=== PATIENT | female | born 1970 | race Caucasian/White ===

== ENCOUNTER → 2022-06-07 10:57 | Outpatient (BNVA) | payer MEDICAID, SELFPAY | PROVIDERS: Family Provider Nurse Practitioner Family; PCP Family Medicine; Visit Provider Family Medicine | DX: K58.9 Irritable bowel syndrome, unspecified (principal); K76.0 Fatty (change of) liver, not elsewhere classified; L40.9 Psoriasis, unspecified; F17.200 Nicotine dependence, unspecified, uncomplicated; K21.9 Gastro-esophageal reflux disease without esophagitis; R01.1 Cardiac murmur, unspecified; K44.9 Diaphragmatic hernia without obstruction or gangrene; Z71.6 Tobacco abuse counseling | CPT/HCPCS: 80053; 80061; 82306; 83721; 85025 ==

== ENCOUNTER → 2022-06-21 11:22 | Outpatient (BNVA) | payer MEDICAID, SELFPAY | PROVIDERS: Family Provider Nurse Practitioner Family; PCP Family Medicine; Visit Provider Family Medicine | DX: R73.9 Hyperglycemia, unspecified (principal); K21.9 Gastro-esophageal reflux disease without esophagitis; K58.9 Irritable bowel syndrome, unspecified; F17.200 Nicotine dependence, unspecified, uncomplicated; E78.00 Pure hypercholesterolemia, unspecified; E78.1 Pure hyperglyceridemia; E55.9 Vitamin D deficiency, unspecified | CPT/HCPCS: 80053; 83036 ==

== ENCOUNTER 2022-08-21 13:37 | Outpatient (CLI) | payer MEDICAID, SELFPAY ==
--- NOTE | 2022-08-21 14:15 | USCV_ITS ---
Cady Bach Age: 51 Gender: F : 1970 Exam Date: 08/21/2022 14:11 Ordering Phys: Jose Harvey MD Technologist: Toño Carter [place]am [place] [facility] [place] Indication: systolic heart murmur BP: 120 / 76 HR: 81 Rhythm: Sinus Technical Quality: Adequate MEASUREMENTS (Male / Female) Normal Values 2D ECHO LV Diastolic Diameter PLAX 4.9 cm 4.2 - 5.9 / 3.9 - 5.3 cm LV Systolic Diameter PLAX 3.1 cm IVS Diastolic Thickness 0.8 cm 0.6 - 1.0 / 0.6 - 0.9 cm IVS Systolic Thickness 1.2 cm LVPW Diastolic Thickness 1.3 cm 0.6 - 1.0 / 0.6 - 0.9 cm LVPW Systolic Thickness 1.4 cm LVOT Diameter 2.0 cm LV Ejection Fraction 2D Teich 65.1 % LV Ejection Fraction MOD 2C 58.4 % LV Ejection Fraction 2C AL 60.2 % LA Diameter 3.2 cm LA Width 2.5 cm LA Height 4.5 cm RA Width 2.4 cm RA Height 3.7 cm Aorta at Sinotubular Diameter 2.0 cm IVC Diameter 2.0 cm M-MODE Aortic Annulus Diameter 2.7 cm LA Ao Ratio MM 1.1 MV E Point Septal Separation 0.6 cm DOPPLER AV Peak Velocity 331.5 cm/s LVOT Peak Velocity 91.0 cm/s AV Area Cont Eq vti 0.8 cm squared AV Area Cont Eq pk 0.9 cm squared MV Peak Velocity 82.0 cm/s MV Area PHT 5.0 cm squared Mitral E to A Ratio 0.9 MV E' Velocity 36.5 cm/s Mitral E to MV E' Ratio 5.9 Mitral E to LV E' Lateral Ratio 5.5 Mitral E to LV E' Septal Ratio 6.3 TR Peak Velocity 227.8 cm/s TR Peak Gradient 20.8 mmHg TR Mean Velocity 183.1 cm/s TR Mean Gradient 13.7 mmHg TR Velocity Time Integral 57.2 cm Right Atrial Pressure 3.0 mmHg Pulmonary Artery Systolic Pressu 23.8 mmHg PV Peak Velocity 130.7 cm/s RV Acceleration Time 0.1 s RV Ejection Time 0.3 s RV AcT/ET 0.5 FINDINGS Left Ventricle Left ventricle is normal in size. LV systolic function is normal with EF of 55 to 60%. No regional wall motion abnormalities are seen. Grade 1 diastolic dysfunction. Right Ventricle Normal in size and function Right Atrium Normal in size Left Atrium Normal in size Mitral Valve Structurally normal mitral valve. Mild mitral regurgitation. Aortic Valve Aortic valve is thickened. 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 Mean gradient across aortic valve of 25 mmHg. Tricuspid Valve Mild tricuspid regurgitation. Pulmonary artery systolic pressure is normal Pulmonic Valve Not well-visualized Pericardium Normal Aorta Normal in size IVC Appears to be normal CONCLUSIONS LV systolic function is normal with EF of 55 to 60% Grade 1 diastolic dysfunction Mild mitral regurgitation Severe paradoxical low-flow low flow gradient aortic stenosis with aortic valve area of 0.81 cm squared and mean gradient across aortic valve 25 mmHg. Mild tricuspid regurgitation No comparison studies are available Alex Brewster MD (Electronically Signed) Final Date: 29 August 2022 17:49 S
== END 2022-08-21 13:38 | disposition home or self-care (01) ==
PROVIDERS: PCP Family Medicine; Visit Provider Family Medicine
DX: R01.1 Cardiac murmur, unspecified (principal); I08.3 Combined rheumatic disorders of mitral, aortic and tricuspid valves
CPT/HCPCS: 93306

== ENCOUNTER → 2022-09-26 10:46 | Outpatient (BNVA) | payer MEDICAID, SELFPAY | PROVIDERS: PCP Family Medicine; Visit Provider Internal Medicine Rheumatology | DX: M45.6 Ankylosing spondylitis lumbar region (principal); L40.0 Psoriasis vulgaris; M54.89 Other dorsalgia; I35.0 Nonrheumatic aortic (valve) stenosis; E55.9 Vitamin D deficiency, unspecified; Z79.899 Other long term (current) drug therapy; M19.071 Primary osteoarthritis, right ankle and foot; M19.041 Primary osteoarthritis, right hand; M17.12 Unilateral primary osteoarthritis, left knee; M47.896 Other spondylosis, lumbar region; Z11.59 Encounter for screening for other viral diseases | CPT/HCPCS: 36415; 72100; 72202; 73130; 73562; 73630; 80076; 82306; 82565; 85025; 86200; 86431; 86480; 86704; 86803; 86812; 87340 ==

== ENCOUNTER → 2022-10-06 08:47 | Outpatient (BNVA) | payer MEDICAID, SELFPAY | PROVIDERS: PCP Family Medicine; Visit Provider Family Medicine | DX: E11.9 Type 2 diabetes mellitus without complications (principal); K21.9 Gastro-esophageal reflux disease without esophagitis; F17.200 Nicotine dependence, unspecified, uncomplicated; L40.0 Psoriasis vulgaris; L40.50 Arthropathic psoriasis, unspecified; E55.9 Vitamin D deficiency, unspecified; I35.0 Nonrheumatic aortic (valve) stenosis | CPT/HCPCS: 83036 ==

== ENCOUNTER 2022-11-07 12:07 | Outpatient (CLI) | payer MEDICAID, SELFPAY ==
[2022-11-07 12:11] VITALS: BMI 29.2
--- NOTE | 2022-11-07 12:12 | ECG_ITS ---
[facility] Test Date: 2022-11-07 Pat Name: Cady Bach Department: Room: Gender: Female [employer]: : 1970 Requested By: Brit Gerardo Order Number: [id number] Domitila MD: Brit Gerardo M.D. Interpretive Statements NAME OF STUDY: DOBUTAMINE STRESS ECHOCARDIOGRAM INDICATION: Cp, aortic stenosis, PROCEDURE: At the baseline, the blood pressure was 159/87 with a heart rate of 86. The electrocardiogram showed normal sinus rhythm with a heart rate of [address]-T changes.. The dobutamine was infused over a period of 18 minutes. The maximum heart rate obtained was 144 (85% of the maximum predicted heart rate). The blood pressure at that time was 173/68 mmHg. The patient did not have any chest pain or any significant electrocardiogram changes with the dobutamine infusion. Diffused and a more prominent nonspecific ST-T changes were noted the physical examination remained unchanged. No arrhythmias were seen on the monitor. During the recovery phase, the patient did not have any specific symptoms. The blood pressure at the end of the recovery phase was 144/75 with a heart rate of 93 per minute. CONCLUSION: 1. Nonspecific ST-T changes with intermittent infusion. 2. No dobutamine use chest pain or any significant cardiac arrhythmia 3. Appropriate heart rate and blood pressure response to dobutamine infusion 4. Sestamibi/Sestamibi perfusion scan pending; see separate report. Electronically Signed On 11-12-2022 22:52:01 CDT by Brit Gerardo M.D. [id number]
--- NOTE | 2022-11-07 12:12 | USCV_ITS ---
Cady Bach Age: 51 Gender: F : 1970 Exam Date: 11/07/2022 13:14 Ordering Phys: Brit Gerardo MD ([email or web address]) Technologist: Clinton Nino Exam Location: [facility] – [place] Indication: Rhythm: Sinus Patient History: Chest pain Cardiac Medications: Medications in past 24 hours: Contrast: Total Dose (mL): Stress Results Protocol: Pharmacologic Peak Dose (???g/kg/min): Duration (min:sec): 18:00 Atropine:(mg) Target HR: 143 Double Product: [id number] Resting HR: 97 Resting BP: 159 / 87 Peak HR: 107 Peak BP: 182 / 87 Max Predicted HR: 168 64 % Max Predicted HR Stress Summary: The hemodynamic response to stress was normal. BP Response: Normal Reason for Termination: Protocol complete Cardiac Symptoms: None ECG Analysis Resting EKG: Stress EKG: Arrhythmia: MEASUREMENTS (Male/Female) Normal Values 2D ECHO LVOT Diameter 2.0 cm DOPPLER AV Peak Velocity 396.2 cm/s LVOT Peak Velocity 127.2 cm/s AV Area Cont Eq vti 1.2 cm squared AV Area Cont Eq pk 1.0 cm squared FINDINGS The baseline aortic valve velocity was 3.51 m/s with a peak gradient of 51 and a mean gradient of 27 mmHg. The valve area was 0.94 cm squared. The dobutamine infusion of 5 mics per KG per minute, the peak velocity was 3.73 m/s with a peak gradient of 56 and a mean gradient of 26. Valve area was 1.33 cm squire. With intermittent infusion of 10 mics per KG per minute, the peak velocity was 3.87 m/s with a peak gradient of 61 mmHg and a mean gradient of 26 mmHg. The valve area was calculated to be 1.17 cm squared. Heart rate at that time was 105 bpm. The stroke- volume index was 55 mm/m squared CONCLUSIONS The above features are consistent with normal flow, low gradient aortic valve stenosis Dr Brit Gerardo MD [facility] (Electronically Signed) Final Date: 11 November 2022 14:52 S
[2022-11-07] MEDS: DOBUTtamine 200 MG in sodium chloride 0.9% 34 ML IV (13:24)
[2022-11-07 13:51] VITALS: BP 144/75; PULSE 93
== END 2022-11-07 12:08 | disposition home or self-care (01) ==
LOC: CDL 12:08
PROVIDERS: PCP Family Medicine; Visit Provider Family Medicine
DX: R07.9 Chest pain, unspecified (principal); I35.0 Nonrheumatic aortic (valve) stenosis
CPT/HCPCS: 36415; 93017; 93350; J1250; J7050

== ENCOUNTER 2022-12-28 10:59 | Outpatient (CLI) | payer MEDICAID, SELFPAY ==
--- NOTE | 2022-12-28 11:03 | MM_ITS ---
WS: [id number] SCREENING DIGITAL TOMOSYNTHESIS MAMMOGRAM WITH CAD HISTORY: SCREENING COMPARISON: None available. Bilateral CC and MLO with tomosynthesis views submitted. Synthetic mammography reviewed. Computer aid ed detection analyzed. Breast composition: The breasts are heterogeneously dense, which may obscure small masses. No suspici ous masses, microcalcifications or architectural distortion. Bilateral intramammary lymph nodes. Rohit gn calcifications in each breast. MM/[place] [id number] IMPRESSION: BI-RADS: 2-Benign FOLLOW UP: 1 Year Follow-up
== END 2022-12-28 11:00 | disposition home or self-care (01) ==
PROVIDERS: PCP Family Medicine; Visit Provider Family Medicine
DX: Z12.31 Encounter for screening mammogram for malignant neoplasm of breast (principal)
CPT/HCPCS: 77063; 77067

== ENCOUNTER 2023-09-25 08:21 | Outpatient (CLI) | payer SELFPAY ==
[2023-09-25 08:38] LABS: HF Add Manual Diff No
[2023-09-25 08:41] LABS: Basophils # 0.1 10^3/uL (0.0-0.1); Basophils % 0.7 %; Eosinophils # 0.1 10^3/uL (0.0-0.8); Eosinophils % 1.6 %; Hematocrit 43.7 % (36-47); Lymphocytes % 22.3 %; Mean Corpuscular HGB Conc 31.4 g/dL (30-55); Mean Corpuscular Hemoglobin 25.5 pg (27-33); Mean Corpuscular Volume 81.4 fl (85-98); Mean Platelet Volume 9.7 fL (7.4-10.4); Monocytes # 0.5 10^3/uL (0.2-0.9); Monocytes % 5.2 %; Neutrophils # 6.12 10^3/uL (1.8-7.7); Neutrophils % 69.9 %; Nucleated Red Blood Cells % 0 %; Platelet Count 382 10^3/cmm (157-399); Red Blood Count 5.37 10^6/uL (3.85-5.65); Red Cell Distribution Width 14.3 % (12.1-15.1); White Blood Count 8.77 10^3/uL (3.29-11.43)
[2023-09-25 09:07] LABS: Estmated Average Glucose 160; Hemoglobin A1C 7.2 % (4.0-6.0)
[2023-09-25 17:32] LABS: Alanine Aminotransferase 24 U/L (0-33); Albumin Level 4.1 g/dL (3.5-5.2); Alkaline Phosphatase 110 U/L (35-105); Anion Gap 18.1 (5-19); Aspartate Amino Transferase 19 U/L (0-32); Blood Urea Nitrogen 14 mg/dL (6-20); Calcium 9.8 mg/dL (8.5-10.5); Carbon Dioxide 24 mmol/L (22-29); Chloride 102 mmol/L (98-107); Chol HDL Ratio 4.28 mg/dL (0.0-4.40); Cholesterol 167 mg/dL (0-200); Globulin 2.9 g/dL (1.3-4.6); Glomerular Filtration Rate 129.1 mL/min (90-130); Glucose 137 mg/dL (65-115); HDL Cholesterol 39 mg/dL (60-100); LDL Cholesterol Calculated 81 mg/dL (50-129); LDL HDL Ratio 2.08 RATIO (0.00-3.22); Osmolality Calculated 293 mOsm/kg (285-295); Potassium 4.1 mmol/L (3.5-5.1); Sodium 140 mmol/L (136-145); Total Bilirubin 0.2 mg/dL (0.15-1.2); Triglycerides 236 mg/dL (0-150)
== END 2023-09-25 08:22 | disposition home or self-care (01) ==
LOC: LAB 08:23
PROVIDERS: PCP Family Medicine; Visit Provider Dermatology
DX: Z01.89 Encounter for other specified special examinations (principal)

== ENCOUNTER → 2023-10-16 15:20 | Outpatient (BNVA) | payer OTHER, SELFPAY | PROVIDERS: PCP Family Medicine; Visit Provider Internal Medicine Cardiovascular Disease | DX: R07.9 Chest pain, unspecified (principal) | CPT/HCPCS: 93005 ==

== ENCOUNTER 2024-06-24 07:34 | Outpatient (CLI) | payer SELFPAY ==
[2024-06-24 08:31] LABS: HF Add Manual Diff No
[2024-06-24 08:53] LABS: Basophils # 0.1 10^3/uL (0.0-0.1); Basophils % 0.7 %; Eosinophils # 0.1 10^3/uL (0.0-0.8); Eosinophils % 1.4 %; Hematocrit 46.1 % (36-47); Lymphocytes # 1.7 10^3/uL (0.8-4.8); Lymphocytes % 21.6 %; Mean Corpuscular HGB Conc 29.7 g/dL (30-55); Mean Corpuscular Hemoglobin 24.6 pg (27-33); Mean Corpuscular Volume 82.6 fl (85-98); Mean Platelet Volume 9.7 fL (7.4-10.4); Monocytes # 0.5 10^3/uL (0.2-0.9); Monocytes % 6.6 %; Neutrophils # 5.59 10^3/uL (1.8-7.7); Neutrophils % 69.3 %; Nucleated Red Blood Cells % 0 %; Platelet Count 351 10^3/cmm (157-399); Red Blood Count 5.58 10^6/uL (3.85-5.65); Red Cell Distribution Width 14.6 % (12.1-15.1); White Blood Count 8.06 10^3/uL (3.29-11.43)
[2024-06-24 08:57] LABS: Alanine Aminotransferase 22 U/L (0-33); Albumin Level 4.1 g/dL (3.5-5.2); Alkaline Phosphatase 108 U/L (35-105); Anion Gap 14.3 (5-19); Aspartate Amino Transferase 18 U/L (0-32); Blood Urea Nitrogen 13 mg/dL (6-20); Calcium 9.5 mg/dL (8.5-10.5); Carbon Dioxide 25 mmol/L (22-29); Chloride 104 mmol/L (98-107); Chol HDL Ratio 4.19 mg/dL (0.0-4.40); Cholesterol 176 mg/dL (0-200); Globulin 2.8 g/dL (1.3-4.6); Glomerular Filtration Rate 128.6 mL/min (90-130); Glucose 172 mg/dL (65-115); HDL Cholesterol 42 mg/dL (60-100); LDL Cholesterol Calculated 64 mg/dL (50-129); LDL HDL Ratio 1.52 RATIO (0.00-3.22); Osmolality Calculated 292 mOsm/kg (285-295); Potassium 4.3 mmol/L (3.5-5.1); Sodium 139 mmol/L (136-145); Total Bilirubin 0.2 mg/dL (0.15-1.2); Total Protein 6.9 g/dL (6.6-8.7); Triglycerides 348 mg/dL (0-150)
[2024-06-24 09:01] LABS: Estmated Average Glucose 146; Hemoglobin A1C 6.7 % (4.0-6.0)
== END 2024-06-24 07:35 | disposition home or self-care (01) ==
LOC: LAB 07:35
PROVIDERS: PCP Family Medicine; Visit Provider Dermatology
DX: Z13.9 Encounter for screening, unspecified (principal)
CPT/HCPCS: 36415

== ENCOUNTER 2024-12-25 07:42 | Outpatient (CLI) | payer SELFPAY ==
[2024-12-25 08:47] LABS: Basophils # 0.1 10^3/uL (0.0-0.1); Basophils % 0.9 %; Eosinophils # 0.2 10^3/uL (0.0-0.8); Eosinophils % 2.3 %; HF Add Manual Diff No; Hematocrit 41.4 % (36-47); Lymphocytes # 1.8 10^3/uL (0.8-4.8); Lymphocytes % 25.6 %; Mean Corpuscular HGB Conc 30.4 g/dL (30-55); Mean Corpuscular Volume 82.1 fl (85-98); Mean Platelet Volume 9.9 fL (7.4-10.4); Monocytes # 0.5 10^3/uL (0.2-0.9); Monocytes % 7.1 %; Neutrophils # 4.48 10^3/uL (1.8-7.7); Neutrophils % 63.8 %; Nucleated Red Blood Cells % 0 %; Platelet Count 336 10^3/cmm (157-399); Red Blood Count 5.04 10^6/uL (3.85-5.65); Red Cell Distribution Width 13.8 % (12.1-15.1); White Blood Count 7.02 10^3/uL (3.29-11.43)
[2024-12-25 09:03] LABS: Estmated Average Glucose 209; Hemoglobin A1C 8.9 % (4.0-6.0)
[2024-12-25 09:07] LABS: Alanine Aminotransferase 26 U/L (0-33); Albumin Level 4.1 g/dL (3.5-5.2); Alkaline Phosphatase 120 U/L (35-105); Anion Gap 18.4 (5-19); Aspartate Amino Transferase 18 U/L (0-32); Blood Urea Nitrogen 10 mg/dL (6-20); Calcium 9.2 mg/dL (8.5-10.5); Carbon Dioxide 23 mmol/L (22-29); Chloride 100 mmol/L (98-107); Chol HDL Ratio 4.81 mg/dL (0.0-4.40); Cholesterol 178 mg/dL (0-200); Globulin 2.7 g/dL (1.3-4.6); Glomerular Filtration Rate 103.8 mL/min (90-130); Glucose 224 mg/dL (65-115); HDL Cholesterol 37 mg/dL (60-100); LDL Cholesterol Calculated 81 mg/dL (50-129); LDL HDL Ratio 2.19 RATIO (0.00-3.22); Osmolality Calculated 290 mOsm/kg (285-295); Potassium 4.4 mmol/L (3.5-5.1); Sodium 137 mmol/L (136-145); Total Bilirubin 0.2 mg/dL (0.15-1.2); Total Protein 6.8 g/dL (6.6-8.7); Triglycerides 299 mg/dL (0-150)
== END 2024-12-25 07:43 | disposition home or self-care (01) ==
PROVIDERS: PCP Family Medicine; Visit Provider Dermatology
DX: Z01.89 Encounter for other specified special examinations (principal)

== ENCOUNTER 2025-02-20 12:20 | Outpatient (CLI) | payer BC, SELFPAY ==
--- NOTE | 2025-02-20 12:45 | USCV_ITS ---
Cady Bach Age: 54 Gender: F : 1970 Exam Date: 02/20/2025 13:49 Ordering Phys: Brit Gerardo MD ([email or web address]) Technologist: Toño Carter Exam Location: [facility] – [place] Indication: BP: 170 / 90 HR: 79 Rhythm: Sinus Technical Quality: Adequate MEASUREMENTS (Male / Female) Normal Values 2D ECHO LV Diastolic Diameter PLAX 4.6 cm 4.2 - 5.9 / 3.9 - 5.3 cm IVS Diastolic Thickness 1.0 cm 0.6 - 1.0 / 0.6 - 0.9 cm IVS Systolic Thickness 1.4 cm LVPW Diastolic Thickness 1.1 cm 0.6 - 1.0 / 0.6 - 0.9 cm LVPW Systolic Thickness 1.6 cm LVOT Diameter 2.1 cm LV Ejection Fraction 2D Teich 57.0 % LV Ejection Fraction MOD 4C 70.3 % LV Ejection Fraction MOD 2C 64.3 % LV Ejection Fraction 2C AL 66.3 % LA Diameter 3.6 cm RA Systolic Volume 4C AL 23.0 ml RA Systolic Volume 4C MOD 22.7 ml LA Sys Volume AL 34.9 cm cubed LA Sys Volume Index AL 17.7 cm cubed/m squared Aorta at Sinotubular Diameter 1.3 cm IVC Diameter 1.5 cm M-MODE LA Ao Ratio MM 1.6 AV Cusp Separation MM 0.6 cm DOPPLER AV Peak Velocity 312.3 cm/s LVOT Peak Velocity 106.0 cm/s AV Area Cont Eq vti 1.0 cm squared AV Area Cont Eq pk 1.1 cm squared MV Peak Velocity 107.0 cm/s MV Area PHT 5.0 cm squared Mitral E to A Ratio 0.9 TR Peak Velocity 265.0 cm/s TR Peak Gradient 28.1 mmHg TR Mean Velocity 214.0 cm/s TR Mean Gradient 20.2 mmHg TR Velocity Time Integral 68.5 cm PV Peak Velocity 113.7 cm/s RV Ejection Time 0.3 s FINDINGS Left Ventricle Normal left ventricular size, systolic function and wall thickness, with no regional wall motion abnormalities. Left ventricular ejection fraction is estimated at 60 %. Grade I/IV diastolic dysfunction (abnormal relaxation filling pattern), normal to mildly elevated filling pressures. Right Ventricle The right ventricle is normal in size and function. Right Atrium The right atrium is normal in size. Left Atrium The left atrium is normal in size. Mitral Valve Structurally normal mitral valve without significant stenosis or prolapse. There is no mitral regurgitation. Aortic Valve Severe aortic valve calcification. Moderate aortic valve stenosis, mean gradient 24.9 mmHg, ARMAAN 0.95 cm squared. No aortic valve regurgitation. Tricuspid Valve Structurally normal tricuspid valve without significant stenosis or regurgitation. Pulmonary artery systolic pressure is normal. Pulmonic Valve Structurally normal pulmonic valve without significant stenosis. There is no pulmonic regurgitation. Pericardium Normal pericardium without effusion. Aorta Normal ascending aorta dimension. IVC The inferior vena cava appears normal. CONCLUSIONS Normal left ventricular size, systolic function and wall thickness, with no regional wall motion abnormalities. Left ventricular ejection fraction is estimated at 60 %. Grade I/IV diastolic dysfunction (abnormal relaxation filling pattern), normal to mildly elevated filling pressures. Severe aortic valve calcification. Moderate aortic valve stenosis, mean gradient 24.9 mmHg, ARMAAN 0.95 cm squared. No aortic valve regurgitation. There is no pericardial effusion. Right atrial pressure is around 5 mm of mercury. Mayda Constantino MD (Electronically Signed) Final Date: 20 February 2025 19:52 S
== END 2025-02-20 12:21 | disposition home or self-care (01) ==
LOC: RAD 12:21
PROVIDERS: PCP Family Medicine; Visit Provider Internal Medicine Cardiovascular Disease
DX: R06.09 Other forms of dyspnea (principal); I35.0 Nonrheumatic aortic (valve) stenosis; I51.89 Other ill-defined heart diseases; I35.2 Nonrheumatic aortic (valve) stenosis with insufficiency
CPT/HCPCS: 93306

== ENCOUNTER 2025-03-26 07:51 | Outpatient (CLI) | payer SELFPAY ==
[2025-03-26 08:55] LABS: HF Add Manual Diff No
[2025-03-26 09:01] LABS: Hematocrit 41.7 % (36-47); Hemoglobin 12.70 g/dL (11.27-16.99); Mean Corpuscular HGB Conc 30.5 g/dL (30-55); Mean Corpuscular Hemoglobin 24.5 pg (27-33); Mean Corpuscular Volume 80.3 fl (85-98); Nucleated Red Blood Cells % 0 %; Platelet Count 364 10^3/cmm (157-399); Red Blood Count 5.19 10^6/uL (3.85-5.65); White Blood Count 7.64 10^3/uL (3.29-11.43)
[2025-03-26 09:26] LABS: Estmated Average Glucose 200; Hemoglobin A1C 8.6 % (4.0-6.0)
[2025-03-26 09:31] LABS: Alanine Aminotransferase 35 U/L (0-33); Albumin Level 4.2 g/dL (3.5-5.2); Alkaline Phosphatase 106 U/L (35-105); Anion Gap 15.4 (5-19); Aspartate Amino Transferase 28 U/L (0-32); Blood Urea Nitrogen 11 mg/dL (6-20); Calcium 9.6 mg/dL (8.5-10.5); Carbon Dioxide 27 mmol/L (22-29); Chloride 103 mmol/L (98-107); Cholesterol 166 mg/dL (0-200); Globulin 2.9 g/dL (1.3-4.6); Glucose 201 mg/dL (65-115); HDL Cholesterol 33 mg/dL (60-100); Osmolality Calculated 297 mOsm/kg (285-295); Potassium 4.4 mmol/L (3.5-5.1); Sodium 141 mmol/L (136-145); Total Protein 7.1 g/dL (6.6-8.7); Triglycerides 328 mg/dL (0-150)
== END 2025-03-26 07:52 | disposition home or self-care (01) ==
PROVIDERS: PCP Family Medicine; Visit Provider Dermatology
DX: Z01.89 Encounter for other specified special examinations (principal)